=== PATIENT | male | born 1995 | race Two or more races ===

== ENCOUNTER 2021-03-12 23:24 | Emergency (ER) | payer MEDICAID ==
[~2021-03-12] VITALS: Ht 170.2 cm; Wt 92.0 kg
[2021-03-13] MEDS ORDERED: ALBUTEROL (0.083%) 2.5MG/3ML NEB HHN STA (00:34)
[2021-03-13 00:54] LABS: BASOPHILS % 1.1 % (0.0-2.0); EOSINOPHILS % 2.8 % (0.0-5.0); HEMOGLOBIN. 14.7 g/dL (14.0-18.0); LYMPHOCYTES % 24.9 % (20.0-50.0); MEAN CORPUSCULAR HEMOGLOBIN 30.7 pg (28.0-32.0); MEAN CORPUSCULAR VOLUME 87.8 fL (80.0-94.0); MEAN PLATELET VOLUME 9.9 fl (7.4-10.4); MONOCYTES % 12.9 % (2.0-8.0); NEUTROPHILS % 58.3 % (40.0-76.0); PLATELET 262 x1000/uL (130-400); RED BLOOD CELL COUNT 4.79 mill/uL (4.7-6.1); RED CELL DISTRIBUTION WIDTH 12.8 % (11.6-14.6)
[2021-03-13 01:03] LABS: CHLORIDE 106 mEq/L (98-107)
[2021-03-13] MEDS ORDERED: IBUP-2028 MT (05:23)
[2021-03-13 05:48] VITALS: BP 130/87
== END 2021-03-13 05:50 | disposition home or self-care (01) ==
LOC: ER 23:24
DX: R07.89 Other chest pain (principal)
CPT/HCPCS: 36415; 71045; 80053; 83880; 84484; 85025; 85379; 93005; 99285

== ENCOUNTER 2022-03-08 13:44 | Emergency (ER) | payer MEDICAID ==
[~2022-03-08] VITALS: Ht 182.9 cm; Wt 104.0 kg
[~2022-03-08 13:44] MED LIST: IBUP-2028 MT
[2022-03-08] MEDS ORDERED: BACITRACIN ZINC OINT UDPKT TOP ONE (16:30)
[2022-03-08] MEDS ORDERED: TETANUS, DIPHTHERIA, PERTUSSIS VAC/PF 0.5ML (>10YR OLD) IM ONE (16:30)
[2022-03-08] MEDS ORDERED: IBUP-2029 MT (17:21)
[2022-03-08] MEDS ORDERED: BO1 TP (17:21)
[2022-03-08 17:40] VITALS: BP 112/66
== END 2022-03-08 17:40 | disposition home or self-care (01) ==
LOC: ER 13:44
DX: S80.02XA Contusion of left knee, initial encounter (principal); S40.012A Contusion of left shoulder, initial encounter; W01.0XXA Fall on same level from slipping, tripping and stumbling without subsequent striking against object, initial encounter; Y93.89 Activity, other specified; Y92.89 Other specified places as the place of occurrence of the external cause; Y99.8 Other external cause status
CPT/HCPCS: 73030; 73562; 73590; 90471; 90715; 99284